=== PATIENT | male | born 1955 | race Caucasian/White ===

== ENCOUNTER 2020-03-29 08:08 | Outpatient (REF) | payer BC, SELFPAY | END 2020-03-29 08:09 | disposition home or self-care (01) | LOC: HO.SCI 08:08 | DX: Z13.89 Encounter for screening for other disorder (principal) ==

== ENCOUNTER 2020-09-29 08:16 | Outpatient (REF) | payer BC, SELFPAY ==
--- NOTE | ~2020-09-29 | XR_ITS ---
EXAMINATION: XR KNEE STANDING, BILATERAL XR KNEE, RIGHT CLINICAL INFORMATION: Right knee pain. COMPARISON: None. TECHNIQUE: AP standing views of the right and left knee. Lateral and sunrise views of the right knee. FINDINGS: Right Knee: Moderate medial compartment joint space narrowing. Prominent tricompartmental marginal osteophytes. No osseous erosion. No fracture or dislocation. Small joint effusion. Probable posterior loose body measuring 0.8 cm. Left Knee: Blfw-un-ycgiwcak medial compartment joint space narrowing. Tricompartmental marginal osteophytes. No osseous erosion. No abnormal soft tissue calcification. XR/XR knee RT 2V IMPRESSION: RIGHT KNEE: Untkscxo-sx-mplewh medial as well as vjel-jr-tjnjbbiq patellofemoral and lateral compartment osteoarthritis. Small joint effusion and posterior ossified loose body measuring 0.8 cm. LEFT KNEE: Moderate medial as well as more warb-bp-gtygwvqv lateral and patellofemoral compartment osteophyte arthritis.
--- NOTE | ~2020-09-29 | XR_ITS ---
EXAMINATION: XR KNEE STANDING, BILATERAL XR KNEE, RIGHT CLINICAL INFORMATION: Right knee pain. COMPARISON: None. TECHNIQUE: AP standing views of the right and left knee. Lateral and sunrise views of the right knee. FINDINGS: Right Knee: Moderate medial compartment joint space narrowing. Prominent tricompartmental marginal osteophytes. No osseous erosion. No fracture or dislocation. Small joint effusion. Probable posterior loose body measuring 0.8 cm. Left Knee: Kwuh-hq-wdwjdpoq medial compartment joint space narrowing. Tricompartmental marginal osteophytes. No osseous erosion. No abnormal soft tissue calcification. XR/XR knee standing BI IMPRESSION: RIGHT KNEE: Mkafjqmf-xt-koxsps medial as well as fwad-dr-gqvktygr patellofemoral and lateral compartment osteoarthritis. Small joint effusion and posterior ossified loose body measuring 0.8 cm. LEFT KNEE: Moderate medial as well as more affh-vv-wuazvdbt lateral and patellofemoral compartment osteophyte arthritis.
== END 2020-09-29 08:17 | disposition home or self-care (01) ==
LOC: HO.HOSX 08:16
PROVIDERS: Visit Provider Orthopaedic Surgery
DX: M25.561 Pain in right knee (principal); M25.562 Pain in left knee
CPT/HCPCS: 20610; 73560; 73565; J1040